=== PATIENT | female | born 1945 | race African-American/Black ===

== ENCOUNTER 2018-03-06 02:09 | Emergency (ER) | payer SELFPAY ==
[~2018-03-06] VITALS: Ht 165.1 cm; Wt 95.3 kg
--- NOTE | 2018-03-06 02:21 | NUR ---
PT BIB FAMILY COMPLAINING OF HIBH BP AT HOME. AA/O X4. NAD. STABLE CONDITION. AMBULATORY TO BED. AWAITING MD BARKLEY.
[2018-03-06 02:41] LABS: BASOPHILS % (AUTO) 0.3 % (0.0-2.0); HEMATOCRIT 40 % (33-45); HEMOGLOBIN 13.3 g/dL (11.5-14.8); LYMPHOCYTES # (AUTO) 2.5 /CMM (0.8-4.8); LYMPHOCYTES % (AUTO) 28.7 % (20.0-44.0); MEAN CORPUSCULAR HEMOGLOBIN 28 PG (26.0-33.0); MEAN CORPUSCULAR HGB CONC 33 g/dl (31.0-36.0); MEAN CORPUSCULAR VOLUME 85 fL (82-100); MONOCYTES # (AUTO) 0.7 /CMM (0.1-1.30); MONOCYTES % (AUTO) 8.2 % (2.0-12.0); NEUTROPHILS # (AUTO) 5.2 /CMM (1.8-8.9); NEUTROPHILS % (AUTO) 58.8 % (43.0-81.0); PLATELET COUNT (AUTO) 295 /CMM (150-450); RED BLOOD CELL COUNT(AUTO) 4.76 MIL/uL (4.0-5.2); WHITE BLOOD COUNT (AUTO) 8.9 K/uL (4.3-11.0)
[2018-03-06 02:51] LABS: CALCIUM, SERUM 8.7 mg/dL (8.5-10.1); CARBON DIOXIDE 25 mmol/L (21-32); CHLORIDE 99 mmol/L (98-107); CREATININE 0.7 mg/dL (0.6-1.3); GLUCOSE 103 mg/dL (74-106); SODIUM SERUM 133 mmol/L (136-145); UREA NITROGEN, BLOOD 17 mg/dL (7-18)
[2018-03-06 02:55] LABS: INR 0.95 (0.87-1.13)
[2018-03-06 03:00] LABS: TROPONIN I < 0.017 ng/mL (0.00-0.056)
[2018-03-06 03:16] VITALS: BP 125/74
== END 2018-03-06 03:17 | disposition home or self-care (01) ==
LOC: ER 02:13
DX: I10 Essential (primary) hypertension (principal); E03.9 Hypothyroidism, unspecified; Z88.8 Allergy status to other drugs, medicaments and biological substances
CPT/HCPCS: 36415; 80048; 84484; 85025; 85730; 93005; 99285; A4606; Z7610

== ENCOUNTER 2025-03-21 00:40 | Emergency (ER) | payer BC, MEDICAID ==
[~2025-03-21] VITALS: Ht 167.6 cm; Wt 68.0 kg
[2025-03-21] MEDS ORDERED: LEVETIRACETAM (500MG) 500 MG/5 ML VIAL IV ONE (01:40)
[2025-03-21] MEDS: LEVETIRACETAM (500MG) 1,000 MG in IV NS 0.9% 90 ML IV STA (01:46)
[2025-03-21 01:57] LABS: PLATELET COUNT (AUTO) 366 K/uL (150-450); RED BLOOD CELL COUNT(AUTO) 4.52 MIL/uL (4.0-5.2); RED CELL DISTRIBUTION WIDTH 15.6 % (11.5-15.0); WHITE BLOOD COUNT (AUTO) 9.6 K/uL (4.3-11.0)
[2025-03-21 02:01] LABS: CALCIUM, SERUM 9.8 mg/dL (8.5-10.1); CREATININE 0.8 mg/dL (0.6-1.3); SODIUM SERUM 135 mmol/L (136-145); UREA NITROGEN, BLOOD 20 mg/dL (7-18)
[2025-03-21 02:11] LABS: LACTIC ACID 3.6 mmol/L (0.4-2.0)
[2025-03-21 02:14] LABS: ASPARTATE AMINOTRANSFERASE 13 U/L (15-37); NT-PRO BNP 91 pg/mL (0-125); TOTAL PROTEIN, SERUM 7.4 g/dL (6.4-8.2)
[2025-03-21] MEDS ORDERED: LOSA1TAB39 PO (03:34)
[2025-03-21] MEDS ORDERED: LEVO50TA8 PO (03:34)
[2025-03-21] MEDS ORDERED: FLUT1BLS13 IH (03:34)
[2025-03-21] MEDS ORDERED: OMEP40CA21 PO (03:34)
[2025-03-21] MEDS ORDERED: ALBU8.5H8 INH (03:34)
[2025-03-21 04:53] LABS: APPEARANCE,URINE CLEAR (CLEAR); BLOOD, URINE NEGATIVE Ery/uL (NEGATIVE); LEUKOCYTE ESTERASE ,URINE 2+ (NEGATIVE); NITRITE, URINE NEGATIVE (NEGATIVE); UGLUCOSE NEGATIVE (NEGATIVE)
[2025-03-21 05:10] VITALS: BP 135/73; TEMP 98.5; O2SAT 98
[2025-03-21 05:20] LABS: ADD URINE CULTURE YES
[2025-03-21 05:22] LABS: SQUAMOUS EPITHELIAL CELL,UR Moderate /HPF (None Seen)
[2025-03-21 06:37] LABS: LACTIC ACID REFLEX 1.1 mmol/L (0.4-1.9)
== END 2025-03-21 08:45 | disposition short-term general hospital (02) ==
LOC: ER 00:43
DX: R56.9 Unspecified convulsions (principal); J45.909 Unspecified asthma, uncomplicated; I10 Essential (primary) hypertension; E03.9 Hypothyroidism, unspecified; Z79.51 Long term (current) use of inhaled steroids; Z79.890 Hormone replacement therapy; Z79.899 Other long term (current) drug therapy
CPT/HCPCS: 99285; 96365; 70450; 71045; 93005; 82248; 85025; 87086; 83605 ×2; 81001; 36415; 80053; 84484; 83880; J7030 ×2; J1953 ×2